=== PATIENT | female | born 1985 | race Hispanic/Latino ===

== ENCOUNTER 2024-10-07 19:52 | Emergency (ER) | payer OTHER ==
[~2024-10-07] VITALS: Ht 149.9 cm; Wt 53.1 kg
[2024-10-07 20:01] VITALS: PULSE 64; RESP 16; TEMP 98.1; O2SAT 100
[2024-10-07] MEDS ORDERED: DOXYCYCLINE HY100 MG PO (20:38)
== END 2024-10-07 20:40 | disposition home or self-care (01) ==
LOC: ER 20:07
DX: T22.212A Burn of second degree of left forearm, initial encounter (principal); X15.8XXA Contact with other hot household appliances, initial encounter; Y93.G3 Activity, cooking and baking; Y92.89 Other specified places as the place of occurrence of the external cause; F17.210 Nicotine dependence, cigarettes, uncomplicated
CPT/HCPCS: 99282